=== PATIENT | male | born 1990 | race Caucasian/White ===

== ENCOUNTER → 2024-12-22 10:36 | Outpatient (REF) | payer OTHER, SELFPAY ==
[2024-12-22 12:40] LABS: Blood Urea Nitrogen 15 mg/dl (9-20); Calcium 9.2 mg/dl (8.4-10.2); Carbon Dioxide 29 mmol/L (22-30); Chloride 102 mmol/L (98-107); Glucose 82 mg/dl (70-99); Potassium 4.8 mmol/L (3.5-5.1); Sodium 138 mmol/L (135-145); eGFR > 60.00
== END ==
LOC: HWLAB 10:36
PROVIDERS: ATTENDING PHYSICIAN Student in an Organized Health Care Education/Training Program
DX: M10.472 Other secondary gout, left ankle and foot (principal)
CPT/HCPCS: 36415; 80048

== ENCOUNTER 2025-01-16 10:45 | Emergency (ER) | payer OTHER, SELFPAY ==
[2025-01-16 10:46] VITALS: BMI 33.4
[2025-01-16 10:49] VITALS: BP 140/113
--- NOTE | 2025-01-16 11:38 | ED.GENMED ---
History of Present Illness
General
Chief Complaint: Musculo-Skeletal Complaint
Source: significant other
Time Seen by Provider: 01/16/25 11:04
History of Present Illness
History of Present Illness:
34-year-old male without significant past medical history presenting for persistent pain to the left foot. Notes pain at the first MTP joint. Reports that the symptoms have been on and off for the past 3 weeks. He has been following with his
doctor, diagnosis gout. Had initially been prescribed allopurinol and prednisone with minimal improvement. He was then started on a steroid taper which seem to have helped. He just saw his primary care doctor this week, started on colchicine. He
notes when he woke up this morning pain was worse. Pain is not radiating up his ankle. Denies any significant alcohol history. He has cut out most gout exacerbating foods such as red meat. Denies any trauma. Denies numbness or tingling. Denies
any history of blood clot. Denies dyspnea or complaints
Phy Exam
Physical Exam
Physical Exam:
General: Well-appearing, no clinical signs of dehydration, nontoxic and in no acute distress
HEENT: protecting airway
Neck: appears supple
CV: Normal heart rate
Resp: No accessory muscle use, no increased work of breathing
Abd: No distention
Extremities: No deformities, mild swelling to the left foot and ankle. Area of erythema at the medial aspect of the left MTP, tender to palpation. Obvious deformity with range of motion intact and distal sensation and pulses intact
Neuro: alert, no focal neurologic deficit
: deferred
Rectal: deferred
Psych: Normal affect
Skin: Intact
Course
Orders/Labs/Results
Orders:
Orders
01/16/25 11:28
Ketorolac [Toradol] 15 mg IV NOW STA
US Periph Venous LOWER Ext LT Urgent
Comment:
Reason For Exam: pain and swelling
01/16/25 11:43
CPK [Creatine Phosphokinase] Urgent
Complete Blood Count/With Diff Urgent
Comprehensive Metabolic Panel Urgent
Uric Acid Urgent
01/16/25 12:50
Ankle, left 3 view CR [CR Ankle - Left Min 3 Views ] Urgent
Comment:
Reason For Exam: pain at first MTP and ankle
Foot, Left 3 View [CR Foot - Left Min 3 Views] Urgent
Comment:
Reason For Exam: pain at first MTP and ankle
Abnormal Lab Results
01/16/25
11:43
MPV 10.9 H fL
(7.4-10.4)
Absolute Monos (auto) 0.8 H 10^3/uL
(0.1-0.6)
Sodium 133 L mmol/L
(135-145)
Glucose 107 H mg/dl
(70-99)
01/16/25 11:43
01/16/25 11:43
Vital Signs
Initial and Last Documented VS:
Initial Vital Signs
Temp Pulse Resp BP Pulse Ox
97.6 F 115 16 140/113 98
01/16/25 10:49 01/16/25 10:49 01/16/25 10:49 01/16/25 10:49 01/16/25 10:49
Last Documented Vital Signs
Temp Pulse Resp BP Pulse Ox
97.6 F 88 16 133/81 98
01/16/25 10:49 01/16/25 12:41 01/16/25 12:41 01/16/25 12:41 01/16/25 11:40
MDM/Problems Addressed
MDM/Problems Addressed:
34-year-old male presenting to the emergency department for persistent left foot and ankle pain. Vital signs on arrival are significant for mild hypertension.
On exam patient is resting comfortably, no acute distress. Clinically patient symptoms appear consistent for gout. No present neurovascular compromise. No concern for acute infection. Lower suspicion for DVT, patient notes however that pain is
starting to track up his leg. For this reason we will start with ultrasound imaging. Will screen with laboratory analysis and check uric acid level. Toradol administered for pain
13:30 -patient's labs are unremarkable. No leukocytosis. DVT ultrasound is negative. Patient is requesting an x-ray. Explained more utility in the absence of trauma, however given persistence of symptoms, will obtain. Ultimate plan for
discharge for prolonged steroid taper and rheumatologic follow-up for continued suspicion of gout
14:00 - X-rays without fracture or malalignment. At this time feel stable for discharge. We started patient on steroids. Advised that he continue allopurinol. Allopurinol sometimes does cause temporary increase in pain upon starting the
medication. Return precautions discussed and patient verbalized understanding
*Pulse Oximetry
SaO2: 98
Oxygen Mode of Delivery: Room air
Patient hypoxic: no
*Critical Care Note
Total Time (30-74mins, 75-104mins- exclusive of procedures): Not Applicable
ED Attending Note
-
Portions of this chart may have been created with voice recognition software.� Occasional wrong word or��sound alike� substitutions may have occurred due to the inherent limitations of voice recognition software.
Discharge Plan
Departure
Patient Disposition: Home (Routine Discharge)
Date of Disposition: 01/16/25
Time of Disposition: 14:09
Patient with high blood pressure during this ER visit?: Yes
Condition: Good
Discharge Problem:
Gout attack
Instructions: Low-purine diet, Gout - ED (DC)
Prescriptions:
New
prednisone 10 mg Tablet
See Rx Instructions .ROUTE .COMPLEX Qty: 45 0RF
Rx Instructions:
Take By Mouth:
50 mg daily x3 days, 40 mg daily x3 days,
30 mg daily x3 days, 20 mg daily x3 days,
10 mg daily x3 days
No Action
allopurinol 200 mg Tablet
200 mg PO DAILY
Referrals:
Dot Ch, [Active, Rheumatology]
Abida Rosa MD, Resident [Family Provider, General]
Activity Restrictions/Additional Instructions:
You were seen in the emergency department for left foot and ankle pain
You were found to have reassuring laboratory analysis, vital signs, ultrasound and x-ray imaging. We continue to suspect you have gout. Please establish care with a rheumatology
Please follow-up closely with your primary care physician.
Return to the emergency department for any worsening of your symptoms, or any development of chest pain, difficulty breathing, abdominal pain with persistent vomiting and inability to tolerate food or liquid by mouth (concern for dehydration),
weakness, headache or confusion, fever greater than 100.4, or any additional symptoms that are concerning to you.
Thank you for choosing [facility].
Interventions
Interventions:
*Risk Screen - Suicide Last Done: 01/16/25 10:49
*General Assessment Last Done: 01/16/25 10:49
*Neglect/Abuse Screening Last Done: 01/16/25 10:49
*ED- Fall Risk Assessment Last Done: 01/16/25 11:09
*ED COVID-19 Vaccine History Last Done: 01/16/25 11:09
*ED Influenza Vaccine History Last Done: 01/16/25 11:09
ED-Musculoskeletal Assessment Last Done: 01/16/25 11:10
Discharge Date and Time
Print Language: SLOVAK
[2025-01-16] MEDS: TORADOL 15 MG IV (11:44)
[2025-01-16 11:52] LABS: Hematocrit 43.5 % (39.0-52.0); Hemoglobin 15.1 g/dL (13.0-18.0); Mean Corp Hgb Conc. 34.7 g/dL (33.0-37.0); Mean Corpuscular Volume 85.0 fL (80.0-94.0); Nucleated Red Blood Cells % 0 % (-); Platelet Count 160 10^3/uL (130-400); Red Cell Dist. Width 12.9 % (11.5-14.5)
[2025-01-16 12:16] LABS: ALT (SGPT) 41 U/L (0-50); AST (SGOT) 34 U/L (17-59); Albumin 4.6 g/dl (3.5-5.0); Alkaline Phosphatase 75 U/L (38-126); Blood Urea Nitrogen 14 mg/dl (9-20); Calcium 9.2 mg/dl (8.4-10.2); Carbon Dioxide 26 mmol/L (22-30); Chloride 103 mmol/L (98-107); Estimated Creatinine Clearance > 125 ml/min; Glucose 107 mg/dl (70-99); Potassium 4.3 mmol/L (3.5-5.1); Sodium 133 mmol/L (135-145); Total Protein 7.8 g/dl (6.3-8.2); Uric Acid 7.9 mg/dl (3.5-8.5); eGFR > 60.00
[2025-01-16 12:41] VITALS: BP 133/81
== END 2025-01-16 14:22 | disposition home or self-care (01) ==
LOC: EMR 10:45
PROVIDERS: EMERGENCY PHYSICIAN Student in an Organized Health Care Education/Training Program; FAMILY PHYSICIAN Student in an Organized Health Care Education/Training Program
DX: M10.9 Gout, unspecified (principal); I10 Essential (primary) hypertension; Z79.899 Other long term (current) drug therapy
CPT/HCPCS: 99284; 96374; 73610; 73630; 80053; 82550; 84550; 85025; 93971

== ENCOUNTER → 2025-01-27 09:48 | Outpatient (REF) | payer OTHER, SELFPAY | LOC: HWRAD 09:48 | PROVIDERS: ATTENDING PHYSICIAN Internal Medicine Rheumatology; FAMILY PHYSICIAN Student in an Organized Health Care Education/Training Program | DX: G89.29 Other chronic pain (principal) | CPT/HCPCS: 72202 ==